=== PATIENT | female | born 1965 | race American Indian/Alaskan Native ===

== ENCOUNTER 2020-03-03 06:20 | Day surgery (SDC) | payer OTHER ==
[~2020-03-03 06:20] MED LIST: BUPIVACAINE/PF (0.25%) 2.5 MG/ML 30 ML VIAL INFILTRATI ONE; CELECOXIB 200 MG CAP PO NR; GABAPENTIN 300 MG CAP PO NR; LACTATED RINGERS 1,000 ML IV SCH; LIDOCAINE (1%) 10 MG/1 ML VIAL 20 ML MDV INFILTRATI ONE; MIDAZOLAM 2 MG/2 ML INJ IV NR; SODIUM CHLORIDE 0.9% IRR 1,500 ML BOTTLE IR ONE; ceFAZolin/Water 2 GM/20 ML 2 GM/20 ML SYRINGE IV NR
[2020-03-03] MEDS ORDERED: LIDOCAINE (1%) 10 MG/1 ML VIAL 20 ML MDV ONE (07:42)
[2020-03-03] MEDS ORDERED: BUPIVACAINE/PF (0.25%) 2.5 MG/ML 30 ML VIAL INFILTRATI ONE ×2 (07:42→09:19)
[2020-03-03] MEDS ORDERED: HYDROmorphone 1 MG/1 ML INJ IV PRN (07:44)
--- NOTE | 2020-03-03 07:44 | Anesthesia Consultation ---
Anesthesia Consult and Med Hx Date of service: 03/03/20 - Airway Anesthetic Teeth Evaluation: Poor, Caps, Crowns ROM Head & Neck: Adequate Mental/Hyoid Distance: Adequate Mallampati Class: Class II Intubation Access Assessment: Probably Good - Pulmonary Exam CTA: Yes - Cardiac Exam Cardiac Exam: RRR - Pre-Operative Health Status ASA Pre-Surgery Classification: ASA3 Proposed Anesthetic Plan: General - Pulmonary Hx Smoking: Yes (25pk yr hx) Hx Respiratory Symptoms: No COPD: Yes (used scheduled inhalers today) Hx Sleep Apnea: Yes - Cardiovascular System Hx Hypertension: Yes (took lisinopril this morning) Hx Heart Attack/AMI: No Hx Percutaneous Transluminal Coronary Angioplasty (PTCA): No Hx Cardia Arrhythmia: No - Central Nervous System CVA: Yes (TIA 2014) - Endocrine Hx 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
--- NOTE | 2020-03-03 07:44 | Anesthesia Day of Surgery ---
Anesthesia Day of Surgery - Day of Surgery Patient Examined: Yes Patient H&P Reviewed: Yes Patient is NPO: Yes
[2020-03-03] MEDS ORDERED: dexAMETHasone 20 MG/5 ML VIAL ONE (07:57)
[2020-03-03] MEDS ORDERED: ONDANSETRON 4 MG/2 ML INJ ONE (07:57)
[2020-03-03] MEDS ORDERED: GLYCOPYRROLATE 0.4 MG/2 ML INJ ONE ×2 (07:57→08:28)
[2020-03-03] MEDS ORDERED: fentaNYL 100 MCG/2 ML INJ ONE (07:57)
[2020-03-03] MEDS ORDERED: PHENYLEPHRINE/NS 1,000 MCG/10 ML SYRINGE (OR USE) IV ONE (07:57)
[2020-03-03] MEDS ORDERED: LIDOCAINE MPF (2%) 20 MG/1 ML VIAL 5 ML ONE (07:57)
[2020-03-03] MEDS ORDERED: propofoL 200 MG/20 ML VIAL IV ONE (07:57)
[2020-03-03] MEDS ORDERED: HYDROmorphone 1 MG/1 ML INJ ONE (08:25)
[2020-03-03] MEDS ORDERED: ROCURONIUM 50 MG/5 ML INJ IV ONE (08:28)
[2020-03-03] MEDS ORDERED: NEOSTIGMINE 10MG/10 ML INJ MDV ONE (08:28)
[2020-03-03] MEDS ORDERED: SUCCINYLCHOLINE CHLORIDE 200 MG/10 ML INJ MDV ONE (08:28)
[2020-03-03] MEDS ORDERED: NEOMY 40 MG/POLYMYXIN B 200,000 UNITS/ML (GU) AMPULE IR ONE ×2 (09:01→09:03)
[2020-03-03] MEDS ORDERED: SODIUM CHLORIDE 0.9% IRR 1,500 ML BOTTLE IR ONE (09:03)
[2020-03-03] MEDS ORDERED: LIDOCAINE (1%) 10 MG/1 ML VIAL 20 ML MDV INFILTRATI ONE (09:19)
--- NOTE | 2020-03-03 10:10 | Operative Report ---
Operative Report Operative Report: Operative Report: March 03, 2020 Preoperative diagnosis: Left breast sebaceous cyst of the lower inner quadrant Postoperative diagnosis: Same Procedure: Ultrasound guided left breast sebaceous cyst excision Surgeon: Linda Zhou MD Fashion Director: Ernie Gallegos MD Anesthesia: General Findings: Left breast sebaceous cyst at 6/7:00 at IMF Complications: None EBL: Minimal Disposition: PACU in good condition Indications for operative procedure: This is a 54 year old lady with left breast sebaceous cyst at 6/7:00 position at inframammary fold. Patient with chronic history of multiple infections and recently treated 2 months ago. Recommendations were to proceed with an excision given chronicity of infection and she requested removal as well. Risks of infection discussed as well given prior inflammed tissues. She wished to proceed with the above procedure. Procedure in detail: Patient was then taken to the operating room. Gen. anesthesia was administered. Left breast and axilla were prepped and draped in the normal sterile operative fashion. Left breast at known sebaceous cyst 6/7 o'clock position at inframammary fold with 2 areas of [id number] tissue present from prior recent infection. Ultrasound was used as well to identify the area of palpable sebaceous cyst. A skin incision was made at the location of the granulated tissue encompassed in the excision with a 15 blade knife and dissection taken down to the subcutaneous tissues. Then proceeded raising of the inferior flap and removal of the sebaceous cyst from the underlying skin. The sebaceous cyst was removed in its entirety with the capsule remaining intact. A portion of the capsule was noted to be ruptured from prior infection medially. Dissection was taken down to healthy non appearing infected breast tissue and then was removed posteriorly with the aid of the Bovie cautery. Manjula ast cavity wound area was irrigated with antibiotic solution. Hemostasis was obtained and then noted. The deep tissues were approximated and closed using interrupted 3-0 Vicryl followed by closing of the subcutaneous tissues with interrupted 3-0 Vicryl and then closing of the skin with a running 4-0 Monocryl followed by Dermabond. 2 small areas of prior drainage sites from infection were closed using one interrupted 4-0 Monocryl of a subcuticular stitch. The patient tolerated surgery very well and she was awaken from anesthesia without any complication and transported to PACU in good condition.
--- NOTE | 2020-03-03 10:15 | Short Stay Summary ---
Short Stay Documentation Date of service: 03/03/20 - History H&P: obtained from office - Allergies and Medications Current Medications: Allergies Fish Containing Products Allergy (Verified 02/25/20 11:25) Anaphylaxis hydrocodone [From Vicodin] Allergy (Verified 02/25/20 11:25) Anaphylaxis Home Medications Medication Instructions Recorded Confirmed Last Taken Type Albuterol Sulfate [Proair 90 mcg IH BID 02/25/20 03/03/20 03/03/20 05:45 History Respiclick] Insulin Aspart Protam & Aspart 23 units SQ QPM 02/25/20 03/03/20 03/02/20 19:45 History [NovoLOG Mix 70-30 Flexpen] Insulin Aspart Protam & Aspart 30 units SQ QAM 02/25/20 02/25/20 03/02/20 History [NovoLOG Mix 70-30 Flexpen] Metformin HCl [metFORMIN] 1,000 mg PO BID 02/25/20 02/25/20 03/02/20 History Rosuvastatin Calcium [Crestor] 10 mg PO DAILY 02/25/20 02/25/20 03/02/20 History Tiotropium [Spiriva] 18 mcg IH QDAY 02/25/20 03/03/20 03/03/20 05:45 History Triamcinolone 0.1% [Kenalog 0.1% 1 applic TP TID 02/25/20 02/25/20 03/02/20 History OINT] lisinopriL [Zestril TAB] 10 mg PO QDAY 02/25/20 03/03/20 03/03/20 05:45 History Sulfamethoxazole/Trimethoprim 1 each PO BID #20 tablet 03/03/20 Unknown Rx [Bactrim DS TAB] traMADoL [Ultram 50 MG tab] 50 mg PO Q6HR PRN #20 tablet 03/03/20 Unknown Rx Active Medications Celecoxib (Celebrex) 200 mg PO PREOP NR Stop: 03/03/20 23:00 Last Admin: 03/03/20 07:25 Dose: 200 mg Documented by: Gabapentin (Gabapentin) 300 mg PO PREOP NR Stop: 03/03/20 23:00 Last Admin: 03/03/20 07:25 Dose: 300 mg Documented by: Hydromorphone HCl (Dilaudid) 0.5 mg IV Q10MIN PRN PRN Reason: Pain , Severe (7-10) Cefazolin Sodium (Ancef/Sterile Water 2 Gm/20 Ml) 2 gm in 20 mls @ 80 mls/hr IV PREOP NR; Protocol Stop: 03/03/20 21:00 Lactated Ringer's (Lactated Ringers) 1,000 mls @ 100 mls/hr IV DIRECT PO Stop: 03/03/20 23:59 Last Admin: 03/03/20 07:19 Dose: 100 mls/hr Documented by: Midazolam HCl (Versed) 2 mg IV PREOP NR Stop: 03/03/20 23:00 Last Admin: 03/03/20 07:44 Dose: 2 mg Documented by: - Brief post op/procedure progress note Date of procedure: 03/03/20 Pre-op diagnosis: Left breast sebaceous cyst Post-op diagnosis: same Procedure: Left breast sebaceous cyst excisional biopsy Anesthesia: GETA Findings: Left breast sebaceous cyst at 6/7:00 position Surgeon: LIAT KELLY Estimated blood loss: minimal Pathology: list Specimen disposition: to lab Condition: stable - Disposition Condition at discharge: Good Disposition: DC-01 TO HOME OR SELFCARE Short Stay Discharge Plan Activity: other (no heavy lifting) Diet: regular Wound: keep clean and dry (remove dressing on ; may shower in 48 hours; no baths) Follow up with: LIAT KELLY MD [Staff Physician] - 7 Days Prescriptions: Sulfamethoxazole/Trimethoprim [Bactrim DS TAB] 1 each PO BID #20 tablet traMADoL [Ultram 50 MG tab] 50 mg PO Q6HR PRN #20 tablet PRN Reason: Pain
[2020-03-03 10:47] VITALS: BP 148/92
--- NOTE | 2020-03-03 12:58 | Post Anesthesia Evaluation ---
- Post Anesthesia Evaluation Patient Participated: Yes Airway Patent: Yes Stable Respiratory Function: Yes Nausea/Vomiting: No Temp > 96.8F: Yes Pain Manageable: Yes Adequeate Hydration: Yes Anesthesia Complications: No
== END 2020-03-03 11:30 | disposition home or self-care (01) ==
LOC: OR 06:20
PROVIDERS: ATTEND Surgery
DX: N60.02 Solitary cyst of left breast (principal); Z20.828 Contact with and (suspected) exposure to other viral communicable diseases; N63.24 Unspecified lump in the left breast, lower inner quadrant; L72.0 Epidermal cyst; F17.210 Nicotine dependence, cigarettes, uncomplicated; E11.42 Type 2 diabetes mellitus with diabetic polyneuropathy; G62.9 Polyneuropathy, unspecified; J44.9 Chronic obstructive pulmonary disease, unspecified; I10 Essential (primary) hypertension; E78.00 Pure hypercholesterolemia, unspecified; G47.30 Sleep apnea, unspecified; E66.9 Obesity, unspecified; M19.90 Unspecified osteoarthritis, unspecified site; Z79.4 Long term (current) use of insulin; Z68.32 Body mass index [BMI] 32.0-32.9, adult; Z79.899 Other long term (current) drug therapy; Z98.891 History of uterine scar from previous surgery; Z98.890 Other specified postprocedural states; Z88.8 Allergy status to other drugs, medicaments and biological substances; Z86.73 Personal history of transient ischemic attack (TIA), and cerebral infarction without residual deficits
CPT/HCPCS: 19120; 82962; 88304; J0330; J0690; J1100; J1170; J2250; J2370; J2405; J2704; J2710; J3010; J7120; U0003